=== PATIENT | female | born 1975 | race Caucasian/White ===

== ENCOUNTER 2017-05-10 08:00 | Day surgery (SDC) | payer BC ==
[~2017-05-10 08:00] MED LIST: Lactated Ringers 1,000 ML IV SCH; Lidocaine 1%/Sod Bicarbonate in NS 8.4% 1 ML Syringe IDERM PRN; Sodium Chloride 0.9% 10 ML Syringe FLUSH PRN
[2017-05-10] MEDS ORDERED: Propofol 200 MG/20 ML SDV ONE (08:19)
[2017-05-10] MEDS ORDERED: fentaNYL 100 MCG/2 ML SDV ONE (08:19)
[2017-05-10] MEDS ORDERED: Lidocaine 0.5% 50 ML SDV ONE (08:20)
[2017-05-10] MEDS ORDERED: Midazolam 1 MG/ML 2 ML SDV ONE (08:20)
[2017-05-10] MEDS ORDERED: Lidocaine 1% 4 ML ONE (08:20)
[2017-05-10] MEDS ORDERED: Sodium Bicarbonate 8.4% 50 MEQ/50 ML SDV ONE (08:20)
--- NOTE | 2017-05-10 08:47 | PCM.PREANE ---
Preanesthetic Assessment - Procedure Proposed Procedure: Excision of right wrist ganglion cyst - Anesthesia/Transfusion/Family Hx Anesthesia History: Prior Anesthesia Without Reaction - Review of Systems General: No Symptoms Pulmonary: Cough (Smokes .75 PPD, Occasionally productive. ) Cardiovascular: No Symptoms Gastrointestinal: No Symptoms Neurological: No Symptoms Other: Reports: None - Physical Assessment NPO Status Date: 05/09/17 NPO Status Time: 23:55 Pulse: 68 O2 Sat by Pulse Oximetry: 100 Respiratory Rate: 16 Blood Pressure: 125/85 Temperature: 36.8 C Weight: 63.957 kg ASA Class: 2 Mental Status: Alert & Oriented x3 Thyro-Mental Finger Breadths: 3 Mouth Opening Finger Breadths: 3 ROM/Head Extension: Full Lungs: Clear to Auscultation, Normal Respiratory Effort Cardiovascular: Regular Rate, Regular Rhythm - Lab Values: Laboratory Last Values WBC 6.22 K/mm3 (3.98-10.04) 05/01/17 10:11 RBC 4.85 M/mm3 (3.98-5.22) 05/01/17 10:11 Hgb 14.8 gm/L (11.2-15.7) 05/01/17 10:11 Hct 43.9 % (34.1-44.9) 05/01/17 10:11 MCV 90.5 fl (79.4-94.8) 05/01/17 10:11 MCH 30.5 pg (25.6-32.2) 05/01/17 10:11 MCHC 33.7 g/dl (32.2-35.5) 05/01/17 10:11 RDW Std Deviation 43.0 fL (36.4-46.3) 05/01/17 10:11 Plt Count 194 K/mm3 (182-369) 05/01/17 10:11 MPV 11.4 fl (9.4-12.3) 05/01/17 10:11 Neut % (Auto) 69.7 % (34.0-71.1) 05/01/17 10:11 Lymph % (Auto) 22.2 % (19.3-51.7) 05/01/17 10:11 [place] % (Auto) 4.7 % (4.7-12.5) 05/01/17 10:11 Eos % (Auto) 2.6 (0.7-5.8) 05/01/17 10:11 Baso % (Auto) 0.8 % (0.1-1.2) 05/01/17 10:11 Neut # (Auto) 4.34 K/mm3 (1.56-6.13) 05/01/17 10:11 Lymph # (Auto) 1.38 K/mm3 (1.18-3.74) 05/01/17 10:11 [place] # (Auto) 0.29 K/mm3 (0.24-0.36) 05/01/17 10:11 Eos # (Auto) 0.16 K/mm3 (0.04-0.36) 05/01/17 10:11 Baso # (Auto) 0.05 K/mm3 (0.01-0.08) 05/01/17 10:11 Sodium 144 mEq/L (136-145) 05/01/17 10:11 Potassium 4.3 mEq/L (3.5-5.1) 05/01/17 10:11 Chloride 109 mEq/L (98-107) H 05/01/17 10:11 Carbon Dioxide 25 mEq/L (21-32) 05/01/17 10:11 Anion Gap 14.3 (5-15) 05/01/17 10:11 BUN 7 mg/dL (7-18) 05/01/17 10:11 Creatinine 0.7 mg/dL (0.55-1.02) 05/01/17 10:11 Est Cr Clr Drug Dosing TNP 05/01/17 10:11 Estimated GFR (MDRD) > 60 mL/min (>60) 05/01/17 10:11 BUN/Creatinine Ratio 10.0 (14-18) L 05/01/17 10:11 Glucose 98 mg/dL (74-106) 05/01/17 10:11 Calcium 8.7 mg/dL (8.5-10.1) 05/01/17 10:11 TSH 3rd Generation 1.632 uIU/mL (0.358-3.74) 05/01/17 10:11 MRSA (PCR) Negative 05/01/17 10:11 - Allergies Allergies/Adverse Reactions: Allergies Allergy/AdvReac Type Severity Reaction Status Date / Time amoxicillin Allergy Hives Verified 05/09/17 14:29 cephalexin Allergy Hives Verified 05/09/17 14:29 chlorhexidine Allergy Hives Verified 05/09/17 14:29 penicillin G Allergy Hives Verified 05/09/17 14:29 - Acknowledgements Anesthesia Type Planned: KRISHNA Pt an Appropriate Candidate for the Planned Anesthesia: Yes Alternatives and Risks of Anesthesia Discussed w Pt/Guardian: Yes Pt/Guardian Understands and Agrees with Anesthesia Plan: Yes PreAnesthesia Questionnaire HEENT History: Reports: Impaired Vision Cardiovascular History: Reports: None Respiratory History: Reports: None Genitourinary History: Reports: None 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 Neurological History: Reports: None Psychiatric History: Reports: None Endocrine/Metabolic History: Reports: Hypothyroidism Hematologic History: Reports: None Immunologic History: Reports: None Oncologic (Cancer) History: Reports: None Dermatologic History: Reports: None - Past Surgical History Head Surgeries/Procedures: Reports: None HEENT Surgical History: Reports: Oral Surgery Cardiovascular Surgical History: Reports: None Respiratory Surgical History: Reports: None GI Surgical History: Reports: Cholecystectomy Female Surgical History: Reports: Tubal Ligation, Other (See Below) Other Female Surgeries/Procedures: bladder sling Endocrine Surgical History: Reports: None Neurological Surgical History: Reports: None Musculoskeletal Surgical History: Reports: Other (See Below) Other Musculoskeletal Surgeries/Procedures:: left wrist tendon surgery Oncologic Surgical History: Reports: None Dermatological Surgical History: Reports: None - SUBSTANCE USE Smoking Status *Q: Current Every Day Smoker Recreational Drug Use History: No - HOME MEDS Home Medications: Home Meds Acetaminophen/HYDROcodone [[place] 325-5 MG] 1 - 2 tab PO Q6H PRN #15 tablet 05/10 [Rx] - CURRENT (IN HOUSE) MEDS Current Meds: Current Medications Lactated Ringer's (Ringers, Lactated) 1,000 mls @ 125 mls/hr IV ASDIRECTED [place] Stop: 05/10/17 23:00 Lidocaine/Sodium Bicarbonate (Buffered Lidocaine 1% In Ns 8.4%) 0.25 ml IDERM ONETIME PRN PRN Reason: Prior to IV Start Stop: 05/10/17 18:00 Sodium Chloride (Saline Flush) 10 ml FLUSH ASDIRECTED PRN PRN Reason: Keep Vein Open Stop: 05/10/17 18:00 Discontinued Medications Fentanyl (Sublimaze) Confirm Administered Dose 100 mcg .ROUTE .STK-MED ONE Stop: 05/10/17 08:20 Lidocaine HCl (Xylocaine-Mpf 1%) Confirm Administered Dose 4 mls @ as directed .ROUTE .STK-MED ONE Stop: 05/10/17 08:21 Lidocaine HCl (Xylocaine-Mpf 0.5%) Confirm Administered Dose 50 ml .ROUTE .STK- MED ONE Stop: 05/10/17 08:21 Midazolam HCl (Versed 1 Mg/Ml) Confirm Administered Dose 2 mg .ROUTE .STK-MED ONE Stop: 05/10/17 08:21 Propofol (Diprivan 20 Ml) Confirm Administered Dose 600 mg .ROUTE .STK-MED ONE Stop: 05/10/17 08:20 Sodium Bicarbonate (Sodium Bicarbonate 8.4%) Confirm Administered Dose 50 meq .ROUTE .STK-MED ONE Stop: 05/10/17 08:21
[2017-05-10] MEDS ORDERED: Clindamycin Phosphate 900 MG in Dextrose 5% in Water 100 ML IV ONE ×2 (09:00)
[2017-05-10] MEDS ORDERED: Bupivacaine 0.25% 10 ML SDV ONE (11:01)
[2017-05-10] MEDS ORDERED: Lidocaine 1% with EPINEPHrine 1:100,000 20 ML MDV ONE (11:17)
[2017-05-10] MEDS ORDERED: Bupivacaine 0.5%/EPINEPHrine 1:200,000 50 ML MDV ONE (11:18)
--- NOTE | 2017-05-10 12:17 | PCM48HPAN ---
Post Anesthesia Note - EVALUATION WITHIN 48HRS OF ANESTHETIC Vital Signs in Normal Range: Yes Patient Participated in Evaluation: Yes Respiratory Function Stable: Yes Airway Patent: Yes Cardiovascular Function Stable: Yes Hydration Status Stable: Yes Pain Control Satisfactory: Yes Nausea and Vomiting Control Satisfactory: Yes Mental Status Recovered: Yes Pulse Rate: 66 SaO2: 95 Resp Rate: 14 Temperature: 36.5 C Blood Pressure: 105/80
[2017-05-10] MEDS ORDERED: fentaNYL 100 MCG/2 ML SDV IVPUSH PRN (12:20)
--- NOTE | 2017-05-20 22:18 | PCM.OPNOTE ---
- General Post-Op/Procedure Note Date of Surgery/Procedure: 05/10/17 Operative Procedure(s): excision of right wrist volar mass Pre Op Diagnosis: right volar wrist mass Post-Op Diagnosis: Same Anesthesia Technique: Regional Block (martell) Primary Surgeon: Dejuan Del Rio Anesthesia Provider: Duc Goss Retread Technician: Karen Luna in mLs: 10 Complications: None Condition: Good
--- NOTE | 2017-05-20 23:04 | OR ---
DATE OF OPERATION: 05/10/2017 SURGEON: Dejuan Del Rio MD OPERATION PERFORMED: Excision of right volar wrist mass. PREOPERATIVE DIAGNOSIS: Right volar wrist mass. POSTOPERATIVE DIAGNOSIS: Right volar wrist mass. ANESTHESIA: Regional Val block with local. ANESTHESIA PROVIDER: Dcu Goss. SINGER BACK TENDER: Karen Luna PA-C. ESTIMATED BLOOD LOSS: 10 mL. COMPLICATIONS: None. CONDITION: Stable. DESCRIPTION OF PROCEDURE: The patient was identified in the preop holding area. Proper site was marked and identified by the surgeon. At this time, the patient was brought back to the operating theater. After adequate anesthesia, the patient's right upper extremity was sterilely prepped and draped in the usual sterile fashion. OR time-out was performed. The patient received 2 g IV Ancef before the Val block was given. At this time, the mass was much smaller than it had been previously, but was palpated roughly over the FCR tendon sheath just the radial side. At this time, the incision was made over the FCR tendon sheath and the FCR tendon was identified. The mass was just to the radial side of the FCR tendon sheath. At this time, using blunt dissection with a [place] blade, I was able to follow the wrist mass down and it was near the radial artery. At this time, care was taken, but it seemed to be a part of the radial artery or wrapped around the radial artery at this time. There was noted to be a small neck in the radial artery and 5-0 Vicryl suture was used for closure of the small rent in the radial artery. At this time, the rest of the mass was excised in whole. At this time, we did drop the tourniquet and there was noted to be no leakage through the radial artery and we could see the pulse through the radial artery. The patient had good Victor M's test on testing, both radial and ulnar arteries, although was slight sluggish on the radial compared to the ulnar side, but there was good flow through both. At this time, the mass was sent for specimen. Adequate saline was irrigated through the wound. 3-0 Vicryl was used subcutaneously and nylon was used for the skin. The patient was placed in a sterile soft dressing and a splint was sent to the PACU in stable condition. MMODAL /[id number]
== END 2017-05-10 13:00 | disposition home or self-care (01) ==
LOC: JD.SDS 08:00
PROVIDERS: ATTEND Orthopaedic Surgery
DX: M67.431 Ganglion, right wrist (principal); E05.90 Thyrotoxicosis, unspecified without thyrotoxic crisis or storm; Z88.0 Allergy status to penicillin; Z88.1 Allergy status to other antibiotic agents; Z88.8 Allergy status to other drugs, medicaments and biological substances; Z90.49 Acquired absence of other specified parts of digestive tract; Z98.51 Tubal ligation status; Z98.890 Other specified postprocedural states; F17.210 Nicotine dependence, cigarettes, uncomplicated
CPT/HCPCS: 25111; 36415; 80048; 84443; 85025; 87641; J2250; J3010; J7060; J7120; 01810; A9270-GY; J2001; J2704